=== PATIENT | female | born 1970 ===

== ENCOUNTER → 2017-01-17 | Outpatient (CLI) | payer MEDICAID, SELFPAY ==
--- NOTE | 2017-01-20 19:02 | HOLTMON ---
[facility] Test Date: 2017-01-17 Pat Name: LINDA ERNST Department: Room: - Gender: [employer]: RUSTAM FERNANDEZ : 1970 Requested By: Yadira Puentes Order Number: [id number] Reading MD: Michael James Interpretive Statements 24 hour Holter monitor recording. Predominantly sinus rhythm with heart rates from 38 bpm (1:17 AM) to a maximum of 131 BPM; average heart rate was 67 BPM. No atrial fibrillation or atrial flutter. Rare PACs and one atrial couplet. No supraventricular tachycardia. Rare PVCs including 1 ventricle couplet and one episode of ventricular bigeminy. No ventricular tachycardia. No RR intervals in excess of 2.0 seconds. Episodes of shortness of breath, hot flashes, correlated with normal sinus rhythm with the following exceptions: Hot flash on one occasion correlated with sinus rhythm with uniform PVCs; hot flash on one occasion correlated with sinus bradycardia 45 BPM; shortness of breath on one occasion correlated with sinus tachycardia 108 BPM. Michael James M.D., [facility], [facility] Electronically Signed On 01-20-2017 19:01:52 EDT by Michael James
== END ==
LOC: M EKG 14:53
PROVIDERS: ATTEND Registered Nurse
DX: R06.02 Shortness of breath (principal)